=== PATIENT | male | born 1975 | race Caucasian/White ===

== ENCOUNTER 2019-03-25 14:43 | Outpatient (CLI) | payer BC, SELFPAY ==
[2019-03-25 17:42] LABS: Hepatitis B Surface Antigen Negative (Negative)
[2019-03-25 17:47] LABS: HAV RESULT Negative (Negative); Hepatitis B Core IgM Result Negative (Negative)
[2019-03-25 17:49] LABS: Iron 82 ug/dL (49-181)
[2019-03-25 17:58] LABS: Percent Iron Saturation 24 % (20-50)
[2019-03-25 17:59] LABS: Hepatitis C Virus Antibody Negative (Negative)
[2019-03-29 04:45] LABS: Ceruloplasmin 25 mg/dL (18-36)
[2019-03-29 16:11] LABS: Tissue Transglutaminase IgG Ab 3 U/mL (<6)
[2019-03-30 15:47] LABS: Tissue Transglutaminase IgA Ab 1 U/mL (<4)
== END 2019-03-25 14:44 | disposition home or self-care (01) ==
PROVIDERS: PCP Internal Medicine; Visit Provider Internal Medicine Gastroenterology
DX: R74.8 Abnormal levels of other serum enzymes (principal); K76.0 Fatty (change of) liver, not elsewhere classified
CPT/HCPCS: 36415; 80074; 82103; 82390; 82728; 83516; 83540; 83550; 86038

== ENCOUNTER 2019-04-01 06:43 | Outpatient (CLI) | payer BC, SELFPAY ==
--- NOTE | ~2019-04-01 | NM_ITS ---
EXAMINATION: NM hepatobiliary w pharm EXAM DATE: 04/01/2019 09:02 INDICATION: TECHNIQUE: 5 mCi Tc-99m mebrofenin (Choletec) was administered intravenously. Scintigraphic images o f the abdomen were obtained for one hour. At the 1 hour time point, 1.8 mcg sincalide (Kinevac) was administered by slow intravenous infusion, and imaging was continued for 30 minutes. Gallbladder ejec tion fraction was calculated by the technologist. There is no prior study for comparison. FINDINGS: There is normal clearance of radiotracer from the blood pool. There is homogeneous tracer u ptake by the liver. Activity progresses to the gallbladder and bowel. The gallbladder ejection fract ion (GBEF) is 33 % (most patients with gallbladder dysfunction have GBEF < 35%, but there is overlap with the normal range of 10-90%). IMPRESSION: Gallbladder ejection fraction 33%, which may indicate some component of gallbladder dysf unction and/or chronic cholecystitis. Reviewed, dictated and finalized at location A. E INSPECTOR FINAL IMPRESSION: Gallbladder ejection fraction 33%, which may indicate some compone nt of gallbladder dysfunction and/or chronic cholecystitis.
== END 2019-04-01 06:44 | disposition home or self-care (01) ==
PROVIDERS: PCP Internal Medicine; Visit Provider Internal Medicine Gastroenterology
DX: R74.8 Abnormal levels of other serum enzymes (principal); R10.11 Right upper quadrant pain
CPT/HCPCS: 78227; A9537; J2805

== ENCOUNTER 2019-05-02 01:15 | Day surgery (SDC) | payer BC, SELFPAY ==
[2019-04-29 10:23] VITALS: BMI 27.5
[2019-05-02 12:14] VITALS: BP 130/78; PULSE 63; RESP 16; TEMP 36.4; O2SAT 99
[2019-05-02] MEDS: LACTATED RINGERS 1,000 ML 150 ML IV CONT (12:18)
--- NOTE | 2019-05-02 12:54 | WPDANESEPPF ---
Anes - Initial Pre Proc Eval Procedure: Operation Date: 05/02/19 13:30 Proposed Procedures p Esophagogastroduodenoscopy - Erasto Boothe MD Date/Time: 05/02/19 12:54 Surgeon: Erasto Boothe MD Pre Op Diagnosis: RUQ Pain Patient Data Age: 43 Gender: M Height: 5 ft 10 in Weight: 90.7 kg Last Vital Signs Temp 97.6 F 05/02/19 12:14 Pulse 63 05/02/19 12:14 Resp 16 05/02/19 12:14 BP 130/78 05/02/19 12:14 Pulse Ox 99 05/02/19 12:14 Allergies Allergy/AdvReac Type Severity Reaction Status Date / Time No Known Allergies Allergy Verified 04/29/19 10:29 Home Medications Medication Instructions Recorded Confirmed Type No Home Medications 04/29/19 04/29/19 History Patient hx anesthesia problems: none Family hx anesthesia problems: none FOR[facility]LY [facility] Past Medical History Medical History (Updated 03/25/19 @ 14:20 by Erasto Boothe MD) Elevated liver enzymes Fatty liver RUQ pain Anes - Eval Final PreProcedure Day of Procedure 05/02/19 12:55 Patient weight: normal Heart: regular rate and rhythm Lungs: clear to auscultation Airway: Mallampati scale class II Neurological: alert and oriented Last oral intake: >/= 8 hours ASA classification: II Emergent: no Anesthetic plan: proceed Anesthesia type and monitoring: general GIVS and standard monitoring Informed Consent: The patient's anesthetic plan and its attendant risks and benefits were discussed with the patient/family/POA. Questions were solicited and answers provided to the satisfaction of the patient/family/POA.
[2019-05-02 14:17] VITALS: BP 104/70; PULSE 72; RESP 22; O2SAT 98
--- NOTE | 2019-05-02 14:18 | PM.HPGS ---
History of Present Illness History of Present Illness Consent: Risks, benefits, and alternatives have been discussed and questions answered. Patient agrees to proceed with procedure. Chief complaint: RUQ Pain Narrative: Nestor Iglesias is a 43 year old male here for ruq pain Review of Systems Constitutional: Constitutional: Denies headache(s) and Denies weakness Eyes: Eyes: Denies blurry vision ENT: Reports Normal hearing present, Denies headache(s) and Denies neck pain Cardiovascular: Cardiovascular: Denies chest pain and Denies dyspnea Respiratory: Respiratory: Denies dyspnea Gastrointestinal: Gastrointestinal: Reports no additional gastrointestinal complaints Genitourinary: Genitourinary: Denies dysuria Musculoskeletal: Musculoskeletal: Denies neck pain Integumentary/Breasts: Skin/Breast: Denies dry skin Neurologic: Reports Normal hearing present, Denies headache(s) and Denies weakness Psychiatric: Psychiatric: Denies anxiety Endocrine: Endocrine: Denies change in body appearance Hematologic/Lymphatic: Hematologic/Lymphatic: Denies easy bleeding Allergic/Immunologic: Allergic/Immunologic: Denies urticaria FORMERLY [facility], [facility] Past Medical History Medical History (Updated 03/25/19 @ 14:20 by Erasto Boothe MD) Elevated liver enzymes Fatty liver RUQ pain Meds Home Medications and Allergies Home Medications Medication Instructions Recorded Confirmed Type No Home Medications 04/29/19 04/29/19 History Allergies Allergy/AdvReac Type Severity Reaction Status Date / Time No Known Allergies Allergy Verified 04/29/19 10:29 Vital Signs Vital Signs - 24 hr 05/02/19 12:14 Temperature 97.6 F Pulse Rate 63 Respiratory Rate 16 Blood Pressure 130/78 Pulse Oximetry 99 Exam Const: General: comfortable and no acute distress HENMT: General nose exam: Normal nares present Eyes: General: appearance normal, both eyes and all related structures Neck: Neck: no JVD Resp: Auscultation: clear to auscultation bilaterally Cardio: Rate: regular rate Rhythm: regular rhythm GI: Inspection: non-distended GI Palp: Yes Soft to palpation Skin: General skin exam: normal color Neuro: General: gait normal Speech: normal speech Extrem: General: normal to inspection Psych: Mental Status: mental status grossly normal Assessment and Plan Assessment and plan (1) RUQ pain: Code(s): R10.11 - Right upper quadrant pain Status: Acute Assessment and Plan: will proceed with egd and consider bx (2) Elevated liver enzymes: Code(s): R74.8 - Abnormal levels of other serum enzymes Status: Acute (3) Fatty liver: Code(s): K76.0 - Fatty (change of) liver, not elsewhere classified Status: Acute
[2019-05-02 14:27] VITALS: BP 111/77; PULSE 61; RESP 22; O2SAT 100
[2019-05-02 14:37] VITALS: BP 128/84; PULSE 64; RESP 22; O2SAT 99
== END 2019-05-02 14:58 | disposition home or self-care (01) ==
PROVIDERS: PCP Internal Medicine; Visit Provider Internal Medicine Gastroenterology
PROC: 0DJ08ZZ Inspection of Upper Intestinal Tract, Via Natural or Artificial Opening Endoscopic (ICD-10-PCS; CPT 43235; principal; 2019-05-02 13:30)
DX: K21.0 Gastro-esophageal reflux disease with esophagitis (principal); K29.50 Unspecified chronic gastritis without bleeding; K22.10 Ulcer of esophagus without bleeding; K76.0 Fatty (change of) liver, not elsewhere classified; R74.8 Abnormal levels of other serum enzymes
CPT/HCPCS: 43239; 88305; J2704; J7120

== ENCOUNTER 2021-11-26 00:49 | Day surgery (SDC) | payer OTHER, SELFPAY ==
[2021-11-11 10:33] VITALS: BMI 27.3
[2021-11-26 08:33] VITALS: BP 114/78; PULSE 59; RESP 18; TEMP 36.1; O2SAT 99
[2021-11-26] MEDS: LACTATED RINGERS 1,000 ML 150 ML IV CONT (08:35)
--- NOTE | 2021-11-26 09:07 | PM.HPGS ---
History of Present Illness History of Present Illness Consent: Risks, benefits, and alternatives have been discussed and questions answered. Patient agrees to proceed with procedure. Chief complaint: erosive esophagitis; neoplasm screening Narrative: Nestor Iglesias is a 46 year old male here for first screening colonoscopy, also had moderate erosive esophagitis 2020 with recurrence of symptom but now much better with omeprazole. Review of Systems Constitutional: Constitutional: Denies headache(s) and Denies weakness Eyes: Eyes: Denies blurry vision ENT: Reports Normal hearing present, Denies headache(s) and Denies neck pain Cardiovascular: Cardiovascular: Denies chest pain and Denies dyspnea Respiratory: Respiratory: Denies dyspnea Gastrointestinal: Gastrointestinal: Reports no additional gastrointestinal complaints Genitourinary: Genitourinary: Denies dysuria Musculoskeletal: Musculoskeletal: Denies neck pain Integumentary/Breasts: Skin/Breast: Denies dry skin Neurologic: Reports Normal hearing present, Denies headache(s) and Denies weakness Psychiatric: Psychiatric: Denies anxiety Endocrine: Endocrine: Denies change in body appearance Hematologic/Lymphatic: Hematologic/Lymphatic: Denies easy bleeding Allergic/Immunologic: Allergic/Immunologic: Denies urticaria PMFSH Past Medical History Medical History (Updated 07/08/21 @ 09:39 by Erasto Boothe MD) Colon cancer screening Dyskinesia of gallbladder Elevated liver enzymes Erosive esophagitis Fatty liver RUQ pain Social History Social History Smoking status: Never smoker Substance use type: does not use Living arrangements: with family Spiritual care concerns: No Meds Home Medications and Allergies Home Medications Medication Instructions Recorded Confirmed Type escitalopram oxalate 10 mg tablet 10 mg PO DAILY 07/08/21 11/26/21 History (Lexapro) omeprazole 20 mg capsule,delayed 20 mg PO DAILY #30 caps 07/08/21 11/26/21 Rx release Allergies Allergy/AdvReac Type Severity Reaction Status Date / Time No Known Allergies Allergy Verified 11/26/21 08:32 Vital Signs Vital Signs - 24 hr 11/26/21 08:33 Temperature 96.9 F L Pulse Rate 59 L Respiratory Rate 18 Blood Pressure 114/78 Pulse Oximetry 99 Oxygen Delivery Room Air Exam Const: General: comfortable and no acute distress HENMT: Face/Nose/Sinus: Normal nares present Eyes: General: appearance normal, both eyes and all related structures Neck: Neck: no JVD Resp: Auscultation: clear to auscultation bilaterally Cardio: Rate: regular rate Rhythm: regular rhythm GI: Inspection: non-distended GI Palp: Yes Soft to palpation Skin: General skin exam: normal color Neuro: General: gait normal Speech: normal speech Extrem: General: normal to inspection Psych: Mental Status: mental status grossly normal Assessment and Plan Assessment and plan (1) Erosive esophagitis: Code(s): K22.10 - Ulcer of esophagus without bleeding Status: Acute Assessment and Plan: egd with bx better with ppi (2) Colon cancer screening: Code(s): Z12.11 - Encounter for screening for malignant neoplasm of colon Status: Acute Assessment and Plan: colonoscopy
--- NOTE | 2021-11-26 09:12 | WPDANESEPPF ---
Anes - Initial Pre Proc Eval Procedure: Operation Date: 11/26/21 09:30 Proposed Procedures p Esophagogastroduodenoscopy & Screening Colonoscopy - Erasto Boothe MD Date/Time: 11/26/21 09:12 Surgeon: Erasto Boothe MD Pre Op Diagnosis: erosive esophagitis; neoplasm screening Patient Data Age: 46 Gender: M Height: 1.78 m Weight: 84.7 kg Last Vital Signs Temp 96.9 F L 11/26/21 08:33 Pulse 59 L 11/26/21 08:33 Resp 18 11/26/21 08:33 BP 114/78 11/26/21 08:33 Pulse Ox 99 11/26/21 08:33 O2 Del Method Room Air 11/26/21 08:33 Allergies Allergy/AdvReac Type Severity Reaction Status Date / Time No Known Allergies Allergy Verified 11/26/21 08:32 Home Medications Medication Instructions Recorded Confirmed Type escitalopram oxalate 10 mg tablet 10 mg PO DAILY 07/08/21 11/26/21 History (Lexapro) omeprazole 20 mg capsule,delayed 20 mg PO DAILY #30 caps 07/08/21 11/26/21 Rx release Patient hx anesthesia problems: none Family hx anesthesia problems: none Results Review: All pre-operative results and documents have been reviewed as part of the pre-operative evaluation. FORMERLY [facility] Past Medical History Medical History (Updated 07/08/21 @ 09:39 by Erasto Boothe MD) Colon cancer screening Dyskinesia of gallbladder Elevated liver enzymes Erosive esophagitis Fatty liver RUQ pain Social History Social History Smoking status: Never smoker Substance use type: does not use Living arrangements: with family Spiritual care concerns: No Anes - Eval Final PreProcedure Day of Procedure 11/26/21 09:12 Patient weight: normal Heart: regular rate and rhythm Lungs: clear to auscultation Airway: Mallampati scale class II Neurological: alert and oriented Last oral intake: >/= 8 hours ASA classification: II Emergent: no Anesthetic plan: proceed Anesthesia type and monitoring: general GIVS and standard monitoring Results Review: All pre-operative results and documents have been reviewed as part of the pre-operative evaluation. Informed Consent: The patient's anesthetic plan and its attendant risks and benefits were discussed with the patient/family/POA. Questions were solicited and answers provided to the satisfaction of the patient/family/POA.
--- NOTE | 2021-11-26 09:26 | SUR.OPER ---
EGD ENDED 920 COLONOSCOPY STARTED 926
[2021-11-26 09:37] VITALS: BP 95/62; PULSE 56; RESP 17; O2SAT 98
[2021-11-26 09:47] VITALS: BP 102/71; PULSE 53; RESP 16; O2SAT 98
[2021-11-26 09:57] VITALS: BP 112/72; PULSE 62; RESP 18; O2SAT 99
== END 2021-11-26 10:11 | disposition home or self-care (01) ==
PROVIDERS: Visit Provider Internal Medicine Gastroenterology
PROC: 0DJ08ZZ Inspection of Upper Intestinal Tract, Via Natural or Artificial Opening Endoscopic (ICD-10-PCS; CPT 43235; principal; 2021-11-26 09:30)
DX: Z12.11 Encounter for screening for malignant neoplasm of colon (principal); K44.9 Diaphragmatic hernia without obstruction or gangrene; K20.0 Eosinophilic esophagitis
CPT/HCPCS: 45378; 43239; 88305; J2001; J2704; J7120

== ENCOUNTER 2023-08-09 14:44 | Outpatient (CLI) | payer OTHER, SELFPAY ==
--- NOTE | ~2023-08-09 | CT_ITS ---
EXAMINATION: CT abdomen pelvis w con DATE: 08/09/2023 15:47 INDICATION: R10.9 - Unspecified abdominal pain TECHNIQUE: Computed tomography (CT) of the abdomen and pelvis was performed with 100 mL Omnipaque-350 intravenous contrast. Automated exposure control and iterative reconstruction technique were employe d. The dose-length product was 633.75 mGy-cm. COMPARISON: None. FINDINGS: Lower thorax: Calcified right lower lobe granuloma. Liver: Enlarged. Diffuse fatty infiltration. Biliary/Gallbladder: Gallbladder is normal. No bile duct dilation. Pancreas: No mass or duct dilation. Spleen: Normal. Adrenals:No mass. Kidneys: No suspicious mass, obstructing stone, or hydronephrosis. Punctate right midpole calcificati ons. GI tract: No small or large bowel dilation. Normal appendix. Inflamed epiploic appendage in the left lower quadrant. Mesentery/Peritoneum: No ascites, mass, or free air. Retroperitoneum: No mass. Pelvis: Pelvic organs are within normal limits. Soft Tissues: Small fat-containing uncomplicated appearing umbilical and bilateral inguinal hernias. Bones: No acute osseous finding. IMPRESSION: Hepatomegaly with steatosis. Epiploic appendagitis in the left lower quadrant. No other acute abdominopelvic process detected. Reviewed, dictated and finalized at location K.
== END 2023-08-09 14:45 | disposition home or self-care (01) ==
LOC: ANHIMG 14:45
PROVIDERS: PCP Physician Assistant Medical; Visit Provider Family Medicine
DX: R10.32 Left lower quadrant pain (principal); K76.0 Fatty (change of) liver, not elsewhere classified; K63.89 Other specified diseases of intestine
CPT/HCPCS: 74177; Q9967

== ENCOUNTER 2024-05-03 00:06 | Day surgery (SDC) | payer OTHER, SELFPAY ==
[2024-05-02 10:15] VITALS: BMI 28.0
--- OUTSIDE RECORDS SUMMARY | 2024-05-03 00:09 | XMS_ITS | Referral Summary ---
Author Organization [facility] Address [address] [place] [address] Care Team Providers Care Leather Goods I Assembler Name Role Phone Dandre Johns MD Primary Care Provider [phone] Allergies No known active allergies Medications escitalopram (LEXAPRO) 5 mg tablet Take 5 mg by mouth daily. Active oxyCODONE (ROXICODONE) 5 mg immediate release tabletIndicatio ns:Pain TAKE 1-2 TABLETS EVERY 4-6 HOURS NEEDED FOR PAIN 30 tablet 9 Active Additional Information Patient not taking.Reported on 04/30/2019 Active Problems Problem Noted Date Diagnosed Date Pain in left acromioclavicular joint 12/31/2018 Overview (12/31/2018): Added automatically from request for surgery [id number] Bilateral elbow joint pain 11/23/2017 Social History Tobacco Use Types Packs/Day Years Used Date Smoking Tobacco: Never Smokeless Tobacco: Never Alcohol Use Standard Drinks/Week Comments Yes 0 (1 standard drink = 0.6 oz pur e alcohol) 2X q year Personal Safety Answer Date Recorded Getting School Help Needed Not on file 02/08 Sex and Gender Information Value Date Recorded Sex Assigned at Not on file Legal Sex Male 8:36 AM ENTERPRISE SOFTWARE DEVELOPER Gender Identity Not on file Sexual Orientation Not on file Last Filed Vital Signs Vital Sign Reading Time Taken Comments Blood Pressure 110/79 02/04/2019 11:55 AM ENTERPRISE SOFTWARE DEVELOPER Pulse 55 02/04/2019 11:55 AM ENTERPRISE SOFTWARE DEVELOPER Temperature 36.1 C (97 F) 02/04/2019 11:45 AM ENTERPRISE SOFTWARE DEVELOPER Respiratory Rate 20 02/04/2019 11:55 AM ENTERPRISE SOFTWARE DEVELOPER Oxygen Saturation 96% 02/04/2019 11:55 AM ENTERPRISE SOFTWARE DEVELOPER Inhaled Oxygen Concentration - - Weight 89.4 kg (197 lb 3.2 oz) 02/04/2019 8:11 A M ENTERPRISE SOFTWARE DEVELOPER Height 177.8 cm (5' 10 ) 02/04/2019 8:11 AM ENTERPRISE SOFTWARE DEVELOPER Body Mass Index 28.3 02/04/2019 8:11 AM ENTERPRISE SOFTWARE DEVELOPER Plan of Treatment Not on file Medical Devices Implanted Type Area Skidway Worker Device Identifier Shelf Expiration Date Model / Serial / Lot [employer] Ar-2267 Utility System Repairer Large Eyelet Pectoralis Button Fixation Latex Free - [id number] Implanted:Qty: 1 on 02/04/2019 by Cade Andersen MD at [facility] Left: Shoulder [employer] 11/13/2023 AR-2267 / / [id number] Insurance [employer] AR [employer] AR [employer] ACCESS AR BLUE ACCESS AR Care Teams Leather Goods I Assembler Relationship Specialty Start Date End Date Dandre Johns MD [address] [place] [id number] PCP - General 03/30/16
--- OUTSIDE RECORDS SUMMARY | 2024-05-03 00:09 | XMS_ITS | Clinical Summary ---
Author Organization [facility] Address [facility] [place] [address] Care Team Providers Care Humanities Department Chair Name Role Phone Peng Vora MD Primary Care Provider [phone] Allergies No known active allergies Medications escitalopram 5 MG tablet 2 tablets (10 mg total). 0 9 Active traMADol 50 MG tabletIndications:A cute Pain < 7 Day Supply Take 1 tablet (50 mg total) by mouth every 6 (six) hours as needed for Pain. Indications: Acute Pain < 7 Day Supply 20 tablet 2 Active ondansetron (ZOFRAN-ODT) 4 MG disintegrating tablet Take 1 tablet (4 mg total) by mouth every 8 (eight) hours as needed for Nausea. 20 tablet 3 Active Active Problems Problem Noted Date Diagnosed Date Cervical radiculopathy 12/14/2018 Family History Medical History Relation Comments Lung Cancer Mother Relation Status Comments Mother Social History Tobacco Use Types Packs/Day Years Used Date Smoking Tobacco: Never Smokeless Tobacco: Never Tobacco Cessation:Counseling Given: No Alcohol Use Standard Drinks/Week Comments No 0 (1 standard drink = 0.6 oz pur e alcohol) AUDIT-C Answer Date Recorded Frequency of Alcohol Consumption Never 09/11/2018 Average Number of Drinks Not on file 019 Frequency of Binge Drinking Not on file 08/15 Education Answer Date Recorded What is the highest level of school you have completed or the highest degree you have received? 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[employer] Not on file Not on file Not on file Last Filed Vital Signs Vital Sign Reading Time Taken Comments Blood Pressure 114/74 05/03/2022 7:00 PM CDT Pulse 64 05/03/2022 7:00 PM CDT Temperature 36.6 C (97.9 F) 05/03/2022 7:07 PM CDT Respiratory Rate 18 05/03/2022 7:00 PM CDT Oxygen Saturation 96% 05/03/2022 7:00 PM CDT Inhaled Oxygen Concentration - - Weight 88.5 kg (195 lb) 05/03/2022 5:52 PM CDT Height 177.8 cm (5' 10 ) 05/03/2022 5:52 PM CDT Body Mass Index 27.98 05/03/2022 5:52 PM CDT Plan of Treatment Health Maintenance Due Date Last Done Comments Colorectal Cancer Screening Colonoscopy (10 Years) 1976 Annual Physical 10/14/1979 Hepatitis C 1994 Hepatitis B Vaccines (1 of 3 - 19+ 3-dose series) 10/14/1995 DTaP, Tdap and Td Vaccines ( 2 - Td or Tdap) 07/05/2022 07/05/2012 COVID-19 Vaccine ( - 2023-2 5 season) 2023 Influenza Adult (#1) 2023 Meningococcal B Vaccine Aged Out No l onger eligible based on patient's age to complete this topic Meningococcal Vaccine Aged Out No ruben bruna eligible based on patient's age to complete this topic Pneumococcal Vaccine: Pediat rics (0 to 5 Years) and At-Risk Patients (6 to 64 Years) Aged Out No longer eligi ble based on patient's age to complete this topic RSV Immunizations Under 20 Months Aged Out No longer eligible based on patient's age to complete this topic Insurance [facility] Care Teams Humanities Department Chair Relationship Specialty Start Date End Date Peng Vora MD [address] [place] [id number] PCP - General FAMILY PRACTICE 05/03/22
--- OUTSIDE RECORDS SUMMARY | 2024-05-03 00:09 | XMS_ITS | Clinical Summary ---
Author Organization [facility] Address [address] [place] [address] Care Team Providers Care Front End Technician Name Role Phone Dandre Johns MD Primary Care Provider [phone] Allergies No known active allergies Medications escitalopram [...] (12/31/2018): Added automatically from request for surgery [id number] Bilateral elbow joint pain 11/23/2017 Surgical History Surgery Date Site/Laterality Comments ELBOW SURGERY 02/14/2016 - 02/12/2017 Bilateral no hardware ROTATOR CUFF REPAIR 2014 & 2016 Right x2. No hardware SHOULDER SURGERY 09/21/2018 Left labrum repair Medical History Medical History Date Comments Anxiety well controlled with meds Family History Medical History Relation Name Comments No Known Problems Father Cancer Mother Family history of malignant neoplasm - (Added by TW Conv) Relation Name Status Comments Father Mother Social History Tobacco Use Types Packs/Day Years Used Date Smoking Tobacco: Never Smokeless Tobacco: Never Alcohol Use Standard Drinks/Week Comments Yes 0 (1 standard drink = 0.6 oz pur e alcohol) 2X q year Personal Safety Answer Date Recorded Getting School Help Needed Not on file 12/27 /2023 Sex and Gender Information Value Date Recorded Sex Assigned at Not on file Legal Sex Male 8:36 AM ARTISTS' BOOKING REPRESENTATIVE Gender Identity Not on file Sexual Orientation Not on file Obstetrics History Last Filed Vital Signs Vital Sign Reading Time Taken Comments Blood Pressure 110/79 02/04/2019 11:55 AM ARTISTS' BOOKING REPRESENTATIVE Pulse 55 02/04/2019 11:55 AM ARTISTS' BOOKING REPRESENTATIVE Temperature 36.1 C (97 F) 02/04/2019 11:45 AM ARTISTS' BOOKING REPRESENTATIVE Respiratory Rate 20 02/04/2019 11:55 AM ARTISTS' BOOKING REPRESENTATIVE Oxygen Saturation 96% 02/04/2019 11:55 AM ARTISTS' BOOKING REPRESENTATIVE Inhaled Oxygen Concentration - - Weight 89.4 kg (197 lb 3.2 oz) 02/04/2019 8:11 A M ARTISTS' BOOKING REPRESENTATIVE Height 177.8 cm (5' 10 ) 02/04/2019 8:11 AM ARTISTS' BOOKING REPRESENTATIVE Body Mass Index 28.3 02/04/2019 8:11 AM ARTISTS' BOOKING REPRESENTATIVE Plan of Treatment Health Maintenance Due Date Last Done Comments Colon Cancer Screening-Colonoscopy 1976 Depression Screening 1976 Hepatitis C Screening 1976 Hepatitis B Screening 1994 Regular Well Visit/Exam 18-64 1994 Influenza Vaccine (#1) 2023 DTaP/Tdap/Td Vaccine (2 - Td or Tdap) 06/27/2028 06/27/2018 Pneumococcal vaccine <65 Aged Out No longer eligible based on patient's age to complete this topic Medical Devices Implanted Type Area Chemical Project Engineer Device Identifier Shelf Expiration Date Model / Serial / Lot [employer] Ar-2267 Research Professor Large Eyelet Pectoralis Button Fixation Latex Free - [id number] Implanted:Qty: 1 on 02/04/2019 by Cade Andersen MD at [facility] Left: Shoulder [employer] 11/13/2023 AR-2267 / / [id number] Insurance [facility] [employer] ACCESS DE BLUE ACCESS DE BLUE ACCESS DE Care Teams Front End Technician Relationship Specialty Start Date End Date Dandre Johns MD [address] [place], [place] [id number] PCP - General 03/30/16
[2024-05-03 08:15] VITALS: BP 130/51; PULSE 63; RESP 18; TEMP 36.1; O2SAT 97; BMI 28.5
[2024-05-03] MEDS: LACTATED RINGERS 1,000 ML 150 ML IV CONT (08:24)
--- NOTE | 2024-05-03 09:06 | P.PNAN_ITS ---
Anes - Initial Pre Proc Eval Procedure: Operation Date: 05/03/24 09:15 Proposed Procedures p Esophagogastroduodenoscopy - Erasto Boothe MD Date/Time: 05/03/24 09:06 Surgeon: Erasto Boothe MD Pre Op Diagnosis: Right upper quadrant pain Patient Data Age: 48 Gender: M Height: 1.78 m Weight: 90.2 kg Last Vital Signs Temp 97 F L 05/03/24 08:15 Pulse 63 05/03/24 08:15 Resp 18 05/03/24 08:15 BP 130/51 L 05/03/24 08:15 Pulse Ox 97 05/03/24 08:15 O2 Del Method Room Air 05/03/24 08:15 Allergies Allergy/AdvReac Type Severity Reaction Status Date / Time No Known Allergies Allergy Verified 05/03/24 08:14 Home Medications ?Medication ?Instructions ?Recorded ?Confirmed ?Type escitalopram oxalate 10 mg tablet 10 mg PO DAILY 07/08/21 05/03/24 History (Lexapro) omeprazole 40 mg capsule,delayed 40 mg PO DAILY #30 caps 04/17/24 05/03/24 Rx release sucralfate 1 gram tablet (Carafate) 1 g PO ACHS PRN acid reflux 05/02/24 05/02/24 History Patient hx anesthesia problems: none Family hx anesthesia problems: none Results Review: All pre-operative results and documents have been reviewed as part of the pre- operative evaluation. PMFSH Past Medical History Medical History LLQ abdominal pain Abdominal pain Colon cancer screening Dyskinesia of gallbladder Erosive esophagitis Fatty liver Elevated liver enzymes RUQ pain Social History Social History Smoking status: Never smoker Second hand tobacco smoke exposure: No Alcohol intake: current Substance use: never Substance use type: does not use Lack of Transportation: No Lack of Food: Never True Current Housing: I Have Housing Concerned About Future Housing: No Difficulty Paying Gas/Electric Bills: No Difficulty Paying for Meds: No Currently Unemployed: No Difficulty w/ Childcare or Family Care: No Living arrangements: with family Occupation/Education: occupation Gender identity (if verbalized by the patient): Female Sexual Orientation (if Verbalized by the Patient): Straight or Heterosexual Spiritual care concerns: No Anes - Eval Final PreProcedure Day of Procedure 05/03/24 09:06 Patient weight: normal Heart: regular rate and rhythm Lungs: clear to auscultation Airway: Mallampati scale class II Neurological: alert and oriented Last oral intake: >/= 8 hours ASA classification: II Emergent: no Anesthetic plan: proceed Anesthesia type and monitoring: general GIVS and standard monitoring Results Review: All pre-operative results and documents have been reviewed as part of the pre- operative evaluation. Informed Consent: The patient's anesthetic plan and its attendant risks and benefits were discussed with the patient/family/POA. Questions were solicited and answers provided to the satisfaction of the patient/family/POA.
--- NOTE | 2024-05-03 09:15 | WPDHPUPDATE1 ---
History and Physical Update Update Date/Time: 05/03/24 09:15 History and Physical has been reviewed, including an updated exam of the patient. There are NO changes in the patient's condition. Risks, benefits, and alternatives have been discussed and questions answered. Patient agrees to proceed with procedure.
[2024-05-03] MEDS: BENZOCAINE (*SP) 60 ML SPRAY CAN (HURRICAINE) 1 SPRAY MUCOUS MEM (09:18)
[2024-05-03 09:23] VITALS: BP 107/67; PULSE 74; RESP 18; O2SAT 96
[2024-05-03 09:33] VITALS: BP 116/77; PULSE 61; RESP 27; O2SAT 98
[2024-05-03 09:43] VITALS: BP 114/96; PULSE 59; RESP 19; O2SAT 99
== END 2024-05-03 09:52 | disposition home or self-care (01) ==
PROVIDERS: PCP Physician Assistant Medical; Referring Provider Nurse Practitioner; Visit Provider Internal Medicine Gastroenterology
PROC: 0DJ08ZZ Inspection of Upper Intestinal Tract, Via Natural or Artificial Opening Endoscopic (ICD-10-PCS; CPT 43239; principal; 2024-05-03 09:15)
DX: R10.11 Right upper quadrant pain (principal); K21.9 Gastro-esophageal reflux disease without esophagitis; K82.8 Other specified diseases of gallbladder
CPT/HCPCS: 43239; 88305; J2003; J2704; J7120

== ENCOUNTER 2024-05-06 08:45 | Outpatient (CLI) | payer OTHER, SELFPAY ==
--- NOTE | ~2024-05-06 | NM_ITS ---
EXAMINATION: [place] hepatobiliary wo pharm DATE: 05/06/2024 12:00 INDICATION: Right upper quadrant abdominal pain. COMPARISON: CT abdomen and pelvis 08/09/2023 TECHNIQUE: 4.7 mCi Tc-99m mebrofenin (Choletec) was administered intravenously. Scintigraphic images of the abdomen were obtained for one hour. Then, the patient drank 8 oz Ensure, and imaging was cont inued for 60 minutes. FINDINGS: There is normal clearance of radiotracer from the blood pool. There is homogeneous tracer u ptake by the liver. Activity progresses to the bowel and gallbladder. Gallbladder ejection fraction (GBEF) was 57%. Note that with this technique, normal GBEF >= 33%. IMPRESSION: 1. Normal hepatobiliary scintigraphy. Reviewed, dictated and finalized at location A.
--- OUTSIDE RECORDS SUMMARY | 2024-05-06 09:15 | XMS_ITS | Clinical Summary ---
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
--- OUTSIDE RECORDS SUMMARY | 2024-05-06 09:16 | XMS_ITS | Referral Summary ---
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 Gender Identity Not on file Sexual Orientation Not on file Last Filed Vital Signs Vital Sign Reading Time Taken Comments Blood Pressure 110/79 02/04/2019 11:55 AM MEDIA ARTS PROFESSOR Pulse 55 02/04/2019 11:55 AM MEDIA ARTS PROFESSOR Temperature 36.1 C (97 F) 02/04/2019 11:45 AM MEDIA ARTS PROFESSOR Respiratory Rate 20 02/04/2019 11:55 AM MEDIA ARTS PROFESSOR Oxygen Saturation 96% 02/04/2019 11:55 AM MEDIA ARTS PROFESSOR Inhaled Oxygen Concentration - - Weight 89.4 kg (197 lb 3.2 oz) 02/04/2019 8:11 A M MEDIA ARTS PROFESSOR Height 177.8 cm (5' 10 ) 02/04/2019 8:11 AM MEDIA ARTS PROFESSOR Body Mass Index 28.3 02/04/2019 8:11 AM MEDIA ARTS PROFESSOR Plan of Treatment Not on file Medical Devices Implanted Type Area Psychologists Device Identifier Shelf Expiration Date Model / Serial / Lot [employer] Ar-2267 Upholstery Trimmer Large Eyelet Pectoralis Button Fixation Latex Free - [id number] Implanted:Qty: 1 on 02/04/2019 by Cade Andersen MD at [facility] Left: Shoulder [employer] 11/13/2023 AR-2267 / / [id number] [place] [employer] [place] [employer] [place] [employer] ACCESS [place] BLUE ACCESS IN Care Teams Wireline Field Operator Relationship Specialty Start Date End Date Dandre Johns MD [address] [place] [id number] PCP - General 03/30/16
--- OUTSIDE RECORDS SUMMARY | 2024-05-06 09:16 | XMS_ITS | Clinical Summary ---
Author Organization [facility] Address [address] [place] [address] Care Team Providers Care Court Deputy Name Role Phone Dandre Johns MD Primary Care Provider Allergies No known active allergies Medications escitalopram [...] (12/31/2018): Added automatically from request for surgery [id number] Bilateral elbow joint pain 11/23/2017 Surgical History [...] on file Legal Sex Male 8:36 AM ELDER COUNSELOR Gender Identity Not on file Sexual Orientation Not on file Obstetrics History Last Filed Vital Signs Vital Sign Reading Time Taken Comments Blood Pressure 110/79 02/04/2019 11:55 AM ELDER COUNSELOR Pulse 55 02/04/2019 11:55 AM ELDER COUNSELOR Temperature 36.1 C (97 F) 02/04/2019 11:45 AM ELDER COUNSELOR Respiratory Rate 20 02/04/2019 11:55 AM ELDER COUNSELOR Oxygen Saturation 96% 02/04/2019 11:55 AM ELDER COUNSELOR Inhaled Oxygen Concentration - - Weight 89.4 kg (197 lb 3.2 oz) 02/04/2019 8:11 A M ELDER COUNSELOR Height 177.8 cm (5' 10 ) 02/04/2019 8:11 AM ELDER COUNSELOR Body Mass Index 28.3 02/04/2019 8:11 AM ELDER COUNSELOR Plan of Treatment Health Maintenance Due Date [...] this topic Medical Devices Implanted Type Area Wave Guide Assembler Device Identifier Shelf Expiration Date Model / Serial / Lot [employer] Ar-2267 Ticket Sorter Large Eyelet Pectoralis Button Fixation Latex Free - [id number] Implanted:Qty: 1 on 02/04/2019 by Cade Andersen MD at [facility] Left: Shoulder [employer] 11/13/2023 AR-2267 / / [id number] Insurance [facility] [email or web address] [place]UE ACCESS [place] Care Teams Court Deputy Relationship Specialty Start Date End Date Dandre Johns MD [address] [place], [place] [phone] PCP - General 03/30/16
== END 2024-05-06 08:46 | disposition home or self-care (01) ==
PROVIDERS: PCP Physician Assistant Medical; Visit Provider Nurse Practitioner
DX: R10.11 Right upper quadrant pain (principal)
CPT/HCPCS: 78226; A9537

== ENCOUNTER 2024-05-24 09:09 | Outpatient (CLI) | payer OTHER, SELFPAY ==
--- NOTE | ~2024-05-24 | CT_ITS ---
CT of the Abdomen and Pelvis: Indication: Abdominal pain Technique: 2.5 mm axial scans were obtained through the abdomen and pelvis following intravenous adm inistration of 100 cc of Omnipaque 350. Dose reduction technique was used on this scan by utilizing a utomated exposure control and iterative reconstruction technique. The dose-length product (DLP) was 5 40.74 mGy-cm. COMPARISON: 08/09/2023 Findings: Scans through the lung bases demonstrate calcified medial right lower lobe granuloma. There is diffuse hepatic steatosis. The spleen, pancreas, gallbladder, adrenals and kidneys are withi n normal limits. No evidence of aortic aneurysm. No lymphadenopathy. No bowel obstruction or bowel wall thickening. There is no evidence to suggest acute appendicitis. Images through the pelvis were performed. Urinary bladder unremarkable. No pelvic mass. No ascites. Impression: No acute abnormalities seen. Diffuse hepatic steatosis. Reviewed, dictated and finalized at [facility]. Impression: No acute abnormalities seen. Diffuse hepatic steatosis.
--- OUTSIDE RECORDS SUMMARY | 2024-05-24 09:29 | XMS_ITS | Referral Summary ---
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 Gender Identity Not on file Sexual Orientation Not on file Last Filed Vital Signs Vital Sign Reading Time Taken Comments Blood Pressure 110/79 02/04/2019 11:55 AM CARPENTER'S ASSISTANT Pulse 55 02/04/2019 11:55 AM CARPENTER'S ASSISTANT Temperature 36.1 C (97 F) 02/04/2019 11:45 AM CARPENTER'S ASSISTANT Respiratory Rate 20 02/04/2019 11:55 AM CARPENTER'S ASSISTANT Oxygen Saturation 96% 02/04/2019 11:55 AM CARPENTER'S ASSISTANT Inhaled Oxygen Concentration - - Weight 89.4 kg (197 lb 3.2 oz) 02/04/2019 8:11 A M CARPENTER'S ASSISTANT Height 177.8 cm (5' 10 ) 02/04/2019 8:11 AM CARPENTER'S ASSISTANT Body Mass Index 28.3 02/04/2019 8:11 AM CARPENTER'S ASSISTANT Plan of Treatment Not on file Medical Devices Implanted Type Area Street Light Cleaner Device Identifier Shelf Expiration Date Model / Serial / Lot [employer] Ar-2267 Warehouse Traffic Supervisor Large Eyelet Pectoralis Button Fixation Latex Free - [id number] Implanted:Qty: 1 on 02/04/2019 by Cade Andersen MD at [facility] Left: Shoulder [employer] 11/13/2023 AR-2267 / / [id number] [place] [employer] [place] [employer] [place] [employer] [place] Care Teams Stem Threshing Machine Operator Relationship Specialty Start Date End Date Dandre Johns MD [address] [place] [id number] PCP - General 03/30/16
--- OUTSIDE RECORDS SUMMARY | 2024-05-24 09:29 | XMS_ITS | Clinical Summary ---
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
--- OUTSIDE RECORDS SUMMARY | 2024-05-24 09:29 | XMS_ITS | Clinical Summary ---
Author Organization [facility] Address [address] [place] [address] Care Team Providers Care Pattern Wheel Maker Name Role Phone Dandre Johns MD Primary Care Provider [phone] Allergies No known active allergies Medications escitalopram [...] (12/31/2018): Added automatically from request for surgery [id number] Bilateral elbow joint pain 11/23/2017 Surgical History [...] on file Legal Sex Male 8:36 AM VAULT MANAGER Gender Identity Not on file Sexual Orientation Not on file Obstetrics History Last Filed Vital Signs Vital Sign Reading Time Taken Comments Blood Pressure 110/79 02/04/2019 11:55 AM VAULT MANAGER Pulse 55 02/04/2019 11:55 AM VAULT MANAGER Temperature 36.1 C (97 F) 02/04/2019 11:45 AM VAULT MANAGER Respiratory Rate 20 02/04/2019 11:55 AM VAULT MANAGER Oxygen Saturation 96% 02/04/2019 11:55 AM VAULT MANAGER Inhaled Oxygen Concentration - - Weight 89.4 kg (197 lb 3.2 oz) 02/04/2019 8:11 A M VAULT MANAGER Height 177.8 cm (5' 10 ) 02/04/2019 8:11 AM VAULT MANAGER Body Mass Index 28.3 02/04/2019 8:11 AM VAULT MANAGER Plan of Treatment Health Maintenance Due Date [...] this topic Medical Devices Implanted Type Area Merchandising Assistant Device Identifier Shelf Expiration Date Model / Serial / Lot [employer] Ar-2267 Integration Solution Architect Large Eyelet Pectoralis Button Fixation Latex Free - [id number] Implanted:Qty: 1 on 02/04/2019 by Cade Andersen MD at [facility] Left: Shoulder [employer] 11/13/2023 AR-2267 / / [id number] Insurance [facility] [employer] [place] Care Teams Pattern Wheel Maker Relationship Specialty Start Date End Date Dandre Johns MD [address] [place], [place] [phone] PCP - General 03/30/16
== END 2024-05-24 09:10 | disposition home or self-care (01) ==
LOC: ANHIMG 09:12
PROVIDERS: PCP Physician Assistant Medical; Visit Provider Nurse Practitioner
DX: K76.0 Fatty (change of) liver, not elsewhere classified (principal)
CPT/HCPCS: 74177; Q9967